=== PATIENT | male | born 1970 | race Caucasian/White ===

== ENCOUNTER → 2018-10-01 | Outpatient (CLI) | payer OTHER ==
[~2018-10-01] MED LIST: BACL-1 PO; CYCL10TA29 PO; DICL-195 PO; IBUP800T37 PO
[2018-10-01 10:15] LABS: PLATELET COUNT, AUTOMATED 280 K/uL (150-450)
--- NOTE | 2018-10-01 10:17 | EKG ---
FACILITY: [facility] PATIENT NAME: STEPH ALLEN : [id number] MR: [id number] V: [id number] EXAM DATE: ORDERING PHYSICIAN: PANCHO SONI TECHNOLOGIST: TULIO Ortez Test Reason : CHEST PIN Blood Pressure : / mmHG Vent. Rate : 063 BPM Atrial Rate : 063 BPM P-R Int : 132 ms QRS Dur : 102 ms QT Int : 416 ms P-R-T Axes : -42 074 059 degrees QTc Int : 425 ms Unusual P axis, possible ectopic atrial rhythm Abnormal ECG No previous ECGs available Confirmed by TERE DENTON ([id number]) on 10/01/2018 11:08:55 AM Referred By: PANCHO DENNISON Confirmed By:TERE DENTON
== END ==
LOC: LAB 09:50
PROVIDERS: ATTEND Nurse Practitioner Primary Care
DX: R94.31 Abnormal electrocardiogram [ECG] [EKG] (principal); R07.9 Chest pain, unspecified
CPT/HCPCS: 36415; 82040; 82247; 82310; 82374; 82435; 82565; 82947; 84075; 84132; 84155; 84295; 84450; 84460; 84484; 84520; 85025; 85379

== ENCOUNTER → 2018-10-16 | Outpatient (CLI) | payer OTHER ==
[~2018-10-16] MED LIST changes: +LISI-362 PO
--- NOTE | 2018-10-16 11:14 | EKG ---
FACILITY: [facility] PATIENT NAME: STEPH ALLEN : [id number] MR: [id number] V: [id number] EXAM DATE: ORDERING PHYSICIAN: RENETTA LOPEZ TECHNOLOGIST: SLOANE Test Reason : CHEST PALPITATIONS Blood Pressure : / mmHG Vent. Rate : 066 BPM Atrial Rate : 066 BPM P-R Int : 122 ms QRS Dur : 106 ms QT Int : 412 ms P-R-T Axes : -36 066 036 degrees QTc Int : 431 ms Unusual P axis, possible ectopic atrial rhythm Abnormal ECG When compared with ECG of 01-OCT-2018 08:53, No significant change was found Confirmed by RENETTA LOPEZ ([id number]) on 10/17/2018 12:34:20 PM Referred By: HAY Confirmed By:RENETTA LOPEZ
[2018-10-16 11:48] LABS: LDL CHOLESTEROL 47 mg/dl
--- NOTE | 2018-10-16 12:30 | RADIOLOGY IMAGING REPORT ---
FACILITY: [facility] [place] PATIENT NAME: Parth Belcher : 1970 MR: [id number] V: [id number] EXAM DATE: ORDERING PHYSICIAN: RENETTA LOPEZ TECHNOLOGIST: Location: [facility] [place] Patient: Parth Belcher : 1970 Visit/Account:[id number] Date of Sevice: 10/16/2018 Exam type: CHEST PA LAT History: CHEST PAIN Comparison: None. Findings: There is mild hyperinflation lung peguero with flattening the hemidiaphragms. There is no evidence of a pneumothorax or pneumomediastinum. The cardiac silhouette is normal in size. The trachea is in m idline. IMPRESSION: 1. No acute cardiopulmonary process is seen Report Dictated By: Mi Reyes MD at 10/16/2018 12:25 PM Report E-Signed By: Mi Reyes MD at 10/16/2018 12:26 PM WSN:[id number]
== END ==
LOC: LAB 10:37
PROVIDERS: ATTEND Internal Medicine
DX: R07.9 Chest pain, unspecified (principal); I10 Essential (primary) hypertension
CPT/HCPCS: 36415; 71046; 82040; 82247; 82310; 82374; 82435; 82465; 82565; 82947; 83718; 84075; 84132; 84155; 84295; 84443; 84450; 84460; 84478; 84520

== ENCOUNTER → 2018-11-05 | Outpatient (CLI) | payer OTHER ==
--- NOTE | 2018-11-05 16:23 | RADIOLOGY IMAGING REPORT ---
FACILITY: [facility] PATIENT NAME: Parth Belcher : 1970 MR: [id number] V: [id number] EXAM DATE: ORDERING PHYSICIAN: RENETTA LOPEZ TECHNOLOGIST: Location: [facility] Patient: Parth Belcher : 1970 Visit/Account:[id number] Date of Sevice: 11/05/2018 EXAMINATION: Single Isotope SPECT Imaging with Exercise and Gated SPECT Imaging DATE OF EXAMINATION: 11/05/2018 DATE OF INTERPRETATION: 11/05/2018 REQUESTING PHYSICIAN: RENETTA LOPEZ INDICATION: The patient is a 48-year-old male evaluated for syncope. PROCEDURE: After informed consent the patient received an intravenous injection of 12.7 mCi of Tc-9 9m sestamibi followed at the appropriate time interval by rest imaging. The patient then exercised a ccording to the standard Polo protocol for 10 minutes achieving 12.0 METS. Resting heart rate was 6 4 bpm with a peak heart rate of 164 bpm which is 95 % of maximal predicted heart rate for age. Bloo d pressure at rest was 139 / 89; blood pressure during exercise was 213 / 90. There was no chest americo n during exercise. Exercise was discontinued because of target heart rate achieved. Baseline EKG de monstrates sinus rhythm with probable LVH. There were 1-2 mm of flat to upsloping ST depression in t he anterolateral leads V5 and V6 at peak stress. EKG changes of ischemia at peak exercise. Approxima tely one minute and 30 seconds prior to the termination of exercise, the patient received an intraven ous injection of 29.1 mCi of Tc-99m sestamibi followed by stress imaging. RAW DATA: Examination of the summed raw data revealed a adequate quality study. MYOCARDIAL PERFUSION: The tomographic images demonstrate normal myocardial perfusion tracer uptake i n all segments. No evidence of ischemia or prior infarction. No transient ischemic dilation. GATED IMAGES: The gated images demonstrate LVEF 63%. Normal regional wall motion. IMPRESSION: 1. Negative treadmill stress test for inducible ischemia with above average exercise capacity achiev ing [address]-T wave changes likely due to hypertensive response to exercise. 2. Normal myocardial perfusion scan. 3. Normal LV systolic function; LVEF 53%. 4. Based on the results of this exam, the patient appears to be at low risk for future cardiovascular events. Report Dictated By: Pete Vizcaino at 11/05/2018 4:14 PM Report E-Signed By: Pete Vizcaino at 11/05/2018 4:19 PM WSN:[id number]
--- NOTE | 2018-11-05 18:40 | RT STRESS TEST REPORT ---
FACILITY: [facility] - [place], [place] PATIENT NAME: STEPH ALLEN : [id number] MR: [id number] V: [id number] EXAM DATE: ORDERING PHYSICIAN: RENETTA LOPEZ TECHNOLOGIST: Tr Acquisition Time: 2018-11-05 09:42:36 Total Exercise Time: 00:10:10 Test Indications: Syncope Medications: lisinopril Protocol: BRENDA 2 Max HR: 164 BPM 95% of Pred: 172 BPM Max BP: 220/100 mmHG Max Work Load: 12.0 METS See Nuc Med Report Confirmed by RENEA PARISH ([id number]), editor managing newspaper ERNESTO STOCKTON ([id number]) on 11/05/2018 6:40:22 PM Referred By: RENETTA LOPEZ Overread By: RENEA PARISH
== END ==
LOC: NUC 00:42
PROVIDERS: ATTEND Internal Medicine
DX: R07.89 Other chest pain (principal); I10 Essential (primary) hypertension; Z87.891 Personal history of nicotine dependence
CPT/HCPCS: 78452; 93017; A9500